=== PATIENT | male | born 1995 | race Caucasian/White ===

== ENCOUNTER 2024-12-19 14:10 | Emergency (ER) | payer BC, SELFPAY ==
--- NOTE | 2024-12-19 14:11 | ED.SKABFB ---
HPI - Skin/Abscess/Foreign Bdy General Chief complaint: Skin/Abscess/Foreign Body Stated complaint: tick bite with rash around Time Seen by Provider: 12/19/24 14:11 Source: patient Mode of arrival: ambulatory Limitations: no limitations History of Present Illness HPI narrative: Vignesh is a 29-year-old male patient presenting to the clinic today with complaints of a tick bite with rash to the left medial thigh. He reports he was bitten by a tick last week. Just noticed the bullseye rash today. No fever, chills, body aches, or any joint pain. Related Data Allergies Allergy/AdvReac Type Severity Reaction Status Date / Time No Known Allergies Allergy Verified 12/19/24 14:19 Review of Systems Review of Systems: Pertinent positives per HPI. Patient denies any fever, chills, headache, visual changes, dizziness, cough, shortness of breath, chest pain, palpitations, nausea, vomiting, diarrhea, constipation, abdominal pain, or any urinary issues. PMFSH Comments At the time of my signature, I reviewed and agree with the nursing past medical, surgical, social, and family history. There is no relevant family history pertinent to the patient complaint. Exam Narrative: General: Well-developed, well nourished, in no apparent distress Head: Normocephalic, atraumatic. Cardio: Regular rate and rhythm, s1 and s2 normal, no murmur appreciated. Resp: Clear to auscultation bilaterally, no rhonchi, rales, wheezing or rubs. Integumentary: [place], warm, and dry, intact without lesion, red slight raised Bullseye rash to the left medial thigh, no retained tick visualized Course Course Emergency Course: Portions of this record may have been created with voice recognition software. Level of Care: Express Care Visit Vital Signs Vital signs: Vital Signs Temperature 36.6 C 12/19/24 14:19 Pulse Rate 67 12/19/24 14:19 Respiratory Rate 16 12/19/24 14:19 Blood Pressure 143/85 H 12/19/24 14:19 Pulse Oximetry 99 12/19/24 14:19 Oxygen Delivery Room Air 12/19/24 14:19 Temperature 36.6 C 12/19/24 14:19 Pulse Rate 67 12/19/24 14:19 Respiratory Rate 16 12/19/24 14:19 Blood Pressure 143/85 H 12/19/24 14:19 Pulse Oximetry 99 12/19/24 14:19 Oxygen Delivery Room Air 12/19/24 14:19 Vital signs reviewed MDM - Skin/Abscess/Foreign Bdy MDM Narrative Medical decision making narrative: At the time of visit patient is resting comfortably on the exam table. Patient appears to be nontoxic. Plan: Patient has tick bite to the left medial thigh with bull's-eye rash. Prescription for doxycycline was sent to the pharmacy. Supportive measures were discussed with the patient and they voiced understanding discharge instructions and agrees to treatment plan. Return precautions reviewed Differential Diagnosis Differential diagnosis: Likely abscess of skin or subcutaneous tissue, viral exanthem, dermatophytosis, urticaria, herpes zoster, allergic reaction to drug, cellulitis, eczema, insect bites, impetigo, contact dermatitis and other (Tick bite) Discharge Plan Discharge Clinical Impression: Tick bite Patient Disposition: Home Condition: Stable Instructions: Antibiotic Form, Tick Bite (ED) Additional Instructions: Keep area clean and dry Take doxycycline as prescribed Avoid scratching and this causes rash to spread May take Benadryl 25-50mg every 6 hours as needed for itching. Follow up with your PCP in 3-5 days if symptoms persist or sooner if they worsen Go to the Emergency Room if symptoms worsen- fever, rash spreading with treatment, joint pain, shortness of breath, tongue swelling, drooling, or chest pain Patient Language: Pashto Prescriptions: New doxycycline hyclate 100 mg capsule 100 mg PO BID 7 Days Qty: 14 0RF Follow-up/Referrals: UNKNOWN,DOCTOR [Non-Staff] - Time of Disposition: 14:21 Quality NIHSS Nursing Documentation ED NIHSS nursing documentation: reviewed/agree
[2024-12-19 14:19] VITALS: BP 143/85; PULSE 67; RESP 16; TEMP 36.6; O2SAT 99
== END 2024-12-19 14:24 | disposition home or self-care (01) ==
LOC: EXPBETH 14:14
PROVIDERS: Emergency Provider Nurse Practitioner Family
DX: S70.362A Insect bite (nonvenomous), left thigh, initial encounter (principal); W57.XXXA Bitten or stung by nonvenomous insect and other nonvenomous arthropods, initial encounter
CPT/HCPCS: 99203; G0463